=== PATIENT | female | born 1965 | race Caucasian/White ===

== ENCOUNTER 2020-10-12 14:20 | Emergency (ER) | payer BC, OTHER ==
[2020-10-12 15:44] LABS: HEMOGLOBIN 14.6 gm/dl (12.3-15.3); RED BLOOD COUNT 5.12 M/UL (4.00-5.10); WHITE BLOOD COUNT 9.8 K/UL (4.5-11.0)
[2020-10-12 16:07] LABS: BUN/CREATININE RATIO 13 (0-10)
[2020-10-12] MEDS ORDERED: PULMICORT FLEX90 MCG INH (16:54)
[2020-10-12] MEDS ORDERED: PREDNISONE 20 M20 MG PO (16:54)
== END 2020-10-12 17:46 | disposition home or self-care (01) ==
LOC: ER1 14:20
PROVIDERS: Emergency Medicine
DX: J45.909 Unspecified asthma, uncomplicated (principal); I10 Essential (primary) hypertension; E78.5 Hyperlipidemia, unspecified; Z20.822 Contact with and (suspected) exposure to COVID-19
CPT/HCPCS: 36415; 71045; 80053; 82550; 82553; 83874; 83880; 84484; 85025; 94640; 94664; 96374; 99285; J2930; U0002

== ENCOUNTER → 2020-11-06 | Outpatient (CLI) | payer BC, OTHER ==
[~2020-11-06] MED LIST: PREDNISONE 20 M20 MG PO; PULMICORT FLEX90 MCG INH
== END ==
LOC: HEART 5 08:57
DX: R06.2 Wheezing (principal)
CPT/HCPCS: 94060; 94729

== ENCOUNTER 2021-11-02 09:30 | Emergency (ER) | payer BC ==
[2021-11-02 10:20] LABS: HEMOGLOBIN 14.8 gm/dl (12.3-15.3); RED BLOOD COUNT 5.35 M/UL (4.00-5.10); WHITE BLOOD COUNT 8.7 K/UL (4.5-11.0)
[2021-11-02 10:45] LABS: BUN/CREATININE RATIO 17 (0-10)
[2021-11-02] MEDS ORDERED: MEDROL DOSEPAK 24 MG PO (11:56)
== END 2021-11-02 12:29 | disposition home or self-care (01) ==
LOC: ER1 09:30
PROVIDERS: Physician Assistant
DX: J45.901 Unspecified asthma with (acute) exacerbation (principal); R06.02 Shortness of breath; E78.5 Hyperlipidemia, unspecified; I10 Essential (primary) hypertension; Z20.822 Contact with and (suspected) exposure to COVID-19
CPT/HCPCS: 0240U; 71045; 80053; 82550; 82553; 84484; 85025; 93005; 94640; 94664; 94760; 96374; 99285; J2930

== ENCOUNTER → 2021-11-03 | Outpatient (CLI) | payer BC ==
[~2021-11-03] MED LIST changes: +MEDROL DOSEPAK 24 MG PO
== END ==
LOC: HEART 5 04:30
DX: J45.909 Unspecified asthma, uncomplicated (principal)
CPT/HCPCS: 94060; 94729